=== PATIENT | male | born 1970 | race American Indian/Alaskan Native ===

== ENCOUNTER 2019-01-12 09:07 | Day surgery (SDC) | payer OTHER ==
[2019-01-12] MEDS ORDERED: SODIUM CHLORIDE 0.9% 1000 ML 1,000 ML IV SCH (09:30)
[2019-01-12] MEDS ORDERED: PROPOFOL 200 MG/20 ML VIAL IV ONE ×2 (11:13)
--- NOTE | 2019-01-12 11:32 | Procedure Note ---
Date of procedure: 01/12/19 Pre-op diagnosis: GERD/Dysphagia Post-op diagnosis: other (Moderately,severe Erosive Esophagitis/Esophageal Ulcers/ Gastric Erosion/Gastritis/Small Duodenal Ulcer (Duodenal Bulb)) Procedure: EGD with Biopsy Anesthesia: MAC Surgeon: JENNA MORALES Estimated blood loss: minimal Pathology: list Specimen disposition: to lab Condition: stable Disposition: same day (Treat with PPI. Adivce patient to avoid alcoholic beverages. Avoid aspirin and NSAID for 4 days and follow up in 1 to 2 weeks ([phone]). Treat with PPI.)
--- NOTE | 2019-01-12 11:52 | Operative Report ---
PROCEDURE: Esophagogastroduodenoscopy with biopsy. INDICATIONS: This is a 48-year-old -[place] gentleman who has a history of drinking alcohol. He has had a colonoscopy done in the past by another physician and also has had treatment for his hemorrhoids. At present, he has been having dysphagia and GERD symptoms. EGD was done to assess for the problem. The procedure was done after getting informed consent with MAC anesthesia. Instrument was passed through the hypopharynx into the esophagus, which showed moderately severe erosive esophagitis, possibly it was circumferential and with some areas that were away from the Z-line. Photo documentation and multiple biopsies were done to assess for the severity of the esophagitis so the possible cause of the patient's dysphagia. The patient's esophagus was patent in the distal end and the stomach showed antral erosion and gastritis. Biopsy was done from the gastric antrum, gastric body and angular incisura to rule out for H. pylori and atrophic gastritis. The pylorus was patent. The duodenum in the bulb showed a small duodenal ulcer. Second portion appeared normal. ASSESSMENT: Dysphagia status and GERD symptoms secondary to [id number] erosive esophagitis and esophageal ulcerations, possibly reflux related and aggravated by his alcohol use. The distal esophagus was patent to gastric erosion, gastritis, no gastric ulcers noted. Small duodenal ulcer was noted in the vault. There is minimal bleeding associated with the biopsies. No complications associated with the procedure. PLAN: To advise the patient to refrain from alcoholic beverages. Treat the patient with high dose PPI, have the patient avoid aspirin and aspirin-related products for the next several days and follow up in the office in 1-2 weeks' time. The procedure was done in the GI lab with assistance of the GI lab team, which included RN, Teagan Landin as well as Phillip bales and assistance of anesthesia. JOB# [id number] KILEY/VANDANA
[2019-01-12 12:14] VITALS: BP 134/83
[2019-01-12] MEDS ORDERED: WATER FOR IRRIG STERILE 250 ML BOTTLE IR ONE (12:23)
[2019-01-12] MEDS ORDERED: LIDOCAINE MPF (2%) 20 MG/1 ML VIAL 5 ML ONE (12:30)
== END 2019-01-12 12:15 | disposition home or self-care (01) ==
LOC: GIO 09:07
DX: K29.50 Unspecified chronic gastritis without bleeding (principal); R13.10 Dysphagia, unspecified; K21.0 Gastro-esophageal reflux disease with esophagitis; F17.210 Nicotine dependence, cigarettes, uncomplicated; G47.30 Sleep apnea, unspecified; M19.90 Unspecified osteoarthritis, unspecified site; Z98.890 Other specified postprocedural states; Z72.89 Other problems related to lifestyle
CPT/HCPCS: 43239; 88305; 88312; 88342; J2704